=== PATIENT | male | born 1945 | race Native Hawaiian/Other Pacific Islander ===

== ENCOUNTER 2018-10-24 08:44 | Outpatient (CLI) | payer OTHER ==
[~2018-10-24 08:44] MED LIST: ASA LOW STR81 MG PO; METF500T PO; METO50TA63 PO; PLAVIX75 MG PO; WELCHOL625 MG OR; ZOCOR80 MG OR
[2018-10-24 09:24] LABS: PLATELET COUNT 295 K/uL (142-355)
== END 2018-10-24 19:37 | disposition home or self-care (01) ==
LOC: LABW 08:44
PROVIDERS: Internal Medicine Clinical Cardiac Electrophysiology
DX: I25.10 Atherosclerotic heart disease of native coronary artery without angina pectoris (principal); E11.9 Type 2 diabetes mellitus without complications; Z12.5 Encounter for screening for malignant neoplasm of prostate
CPT/HCPCS: 36415; 80053; 80061; 83036; 84153; 85027

== ENCOUNTER 2019-02-24 10:10 | Outpatient (CLI) | payer OTHER ==
[2019-02-24 10:33] LABS: PLATELET COUNT 235 K/uL (142-355)
[2019-02-24 18:27] LABS: POTASSIUM 3.9 mmol/L (3.6-5.2)
== END 2019-02-24 19:02 | disposition home or self-care (01) ==
LOC: LABW 10:10
PROVIDERS: Internal Medicine
DX: E11.9 Type 2 diabetes mellitus without complications (principal); Z12.5 Encounter for screening for malignant neoplasm of prostate; N40.0 Benign prostatic hyperplasia without lower urinary tract symptoms
CPT/HCPCS: 36415; 80053; 80061; 81000; 82043; 82570; 83036; 84153; 84439; 84443; 85027

== ENCOUNTER 2019-08-21 11:09 | Outpatient (CLI) | payer OTHER ==
[2019-08-21 12:09] LABS: PLATELET COUNT 228 K/uL (142-355)
[2019-08-21 12:26] LABS: POTASSIUM 4.1 mmol/L (3.6-5.2)
== END 2019-08-21 20:16 | disposition home or self-care (01) ==
LOC: LAB 11:09
PROVIDERS: Internal Medicine
DX: Z00.00 Encounter for general adult medical examination without abnormal findings (principal); E11.9 Type 2 diabetes mellitus without complications
CPT/HCPCS: 80053; 80061; 81000; 82043; 82570; 83036; 84443; 85027

== ENCOUNTER 2019-09-07 08:43 | Outpatient (CLI) | payer OTHER | END 2019-09-07 21:39 | disposition home or self-care (01) | LOC: CT 08:43 | DX: Z12.2 Encounter for screening for malignant neoplasm of respiratory organs (principal); Z13.6 Encounter for screening for cardiovascular disorders; Z87.891 Personal history of nicotine dependence ==

== ENCOUNTER 2020-06-22 09:18 | Outpatient (CLI) | payer OTHER ==
[2020-06-22 10:36] LABS: POTASSIUM 4.3 mmol/L (3.6-5.2)
[2020-06-22 11:13] LABS: PLATELET COUNT 229 K/uL (142-355)
== END 2020-06-22 22:22 | disposition home or self-care (01) ==
LOC: LABW 09:18
PROVIDERS: Internal Medicine
DX: I25.10 Atherosclerotic heart disease of native coronary artery without angina pectoris (principal); E11.9 Type 2 diabetes mellitus without complications; Z12.5 Encounter for screening for malignant neoplasm of prostate; N40.0 Benign prostatic hyperplasia without lower urinary tract symptoms
CPT/HCPCS: 36415; 80053; 80061; 81000; 83036; 84153; 84439; 84443; 85027

== ENCOUNTER 2020-08-24 15:54 | Observation (INO) | payer OTHER ==
[~2020-08-24] VITALS: Ht 172.7 cm; Wt 77.1 kg
[2020-08-24 16:33] LABS: PLATELET COUNT 212 K/uL (142-355)
[2020-08-24 16:38] LABS: POTASSIUM 4.6 mmol/L (3.6-5.2); SODIUM 138 mmol/L (136-145)
[2020-08-24 18:00] VITALS: BP 139/73; TEMP 98.9; Ht 172.7 cm; Wt 77.1 kg
[2020-08-24 20:00] VITALS: BP 140/68; TEMP 100.9
[2020-08-25] VITALS: BP 94/56; TEMP 99.8
[2020-08-25 04:00] VITALS: BP 120/69; TEMP 98.6
[2020-08-25 05:30] LABS: PLATELET COUNT 138 K/uL (142-355)
[2020-08-25 05:47] LABS: POTASSIUM 4.1 mmol/L (3.6-5.2)
[2020-08-25 08:00] VITALS: BP 111/67; TEMP 98.1
== END 2020-08-25 10:00 | disposition home or self-care (01) ==
LOC: MED/SURG 15:54
PROVIDERS: ADMIT Internal Medicine Endocrinology, Diabetes & Metabolism; ATTEND Internal Medicine Endocrinology, Diabetes & Metabolism
DX: U07.1 COVID-19 (principal); I25.10 Atherosclerotic heart disease of native coronary artery without angina pectoris; E11.9 Type 2 diabetes mellitus without complications; I10 Essential (primary) hypertension; E78.49 Other hyperlipidemia; K21.9 Gastro-esophageal reflux disease without esophagitis; M15.8 Other polyosteoarthritis
CPT/HCPCS: 36415; 80048; 80053; 82948; 84484; 85027; 87502; 87635; 96367; 96374; 99220; G0378; G0379; J0456; U0003

== ENCOUNTER 2020-12-09 09:44 | Outpatient (CLI) | payer OTHER ==
[2020-12-09 10:04] LABS: PLATELET COUNT 193 K/uL (142-355)
[2020-12-09 11:04] LABS: POTASSIUM 4.4 mmol/L (3.6-5.2)
== END 2020-12-09 19:30 | disposition home or self-care (01) ==
LOC: LABW 09:44
PROVIDERS: ATTEND Internal Medicine
DX: E11.9 Type 2 diabetes mellitus without complications (principal); I25.10 Atherosclerotic heart disease of native coronary artery without angina pectoris
CPT/HCPCS: 36415; 80053; 80061; 81000; 82043; 83036; 84439; 84443; 85027

== ENCOUNTER 2021-07-03 10:09 | Outpatient (CLI) | payer OTHER ==
[2021-07-03 11:09] LABS: PLATELET COUNT 229 K/uL (142-355)
[2021-07-03 11:29] LABS: POTASSIUM 4.4 mmol/L (3.6-5.2)
== END 2021-07-03 19:05 | disposition home or self-care (01) ==
LOC: LABW 10:09
PROVIDERS: ATTEND Internal Medicine
DX: I25.10 Atherosclerotic heart disease of native coronary artery without angina pectoris (principal); E11.43 Type 2 diabetes mellitus with diabetic autonomic (poly)neuropathy; I10 Essential (primary) hypertension
CPT/HCPCS: 36415; 80053; 80061; 81000; 82043; 83036; 84439; 84443; 85027

== ENCOUNTER 2022-01-08 08:31 | Outpatient (CLI) | payer OTHER ==
[2022-01-08 09:28] LABS: PLATELET COUNT 242 K/uL (142-355)
[2022-01-08 10:20] LABS: POTASSIUM 4.5 mmol/L (3.6-5.2)
== END 2022-01-08 18:54 | disposition home or self-care (01) ==
LOC: LABW 08:31
PROVIDERS: ATTEND Internal Medicine
DX: E11.43 Type 2 diabetes mellitus with diabetic autonomic (poly)neuropathy (principal); I25.10 Atherosclerotic heart disease of native coronary artery without angina pectoris; Z12.5 Encounter for screening for malignant neoplasm of prostate; N40.0 Benign prostatic hyperplasia without lower urinary tract symptoms
CPT/HCPCS: 36415; 80053; 80061; 82043; 83036; 84153; 84439; 84443; 85027

== ENCOUNTER 2022-07-18 13:15 | Outpatient (CLI) | payer OTHER ==
[2022-07-18 13:55] LABS: PLATELET COUNT 265 K/uL (142-355)
[2022-07-18 14:26] LABS: POTASSIUM 4.2 mmol/L (3.6-5.2)
== END 2022-07-18 19:14 | disposition home or self-care (01) ==
LOC: LAB 13:15
PROVIDERS: ATTEND Internal Medicine
DX: Z00.00 Encounter for general adult medical examination without abnormal findings (principal); E11.9 Type 2 diabetes mellitus without complications; I25.10 Atherosclerotic heart disease of native coronary artery without angina pectoris; E78.49 Other hyperlipidemia; R39.198 Other difficulties with micturition; Z79.899 Other long term (current) drug therapy; N40.0 Benign prostatic hyperplasia without lower urinary tract symptoms; I10 Essential (primary) hypertension
CPT/HCPCS: 80053; 80061; 81000; 82043; 83036; 84153; 84439; 84443; 85027

== ENCOUNTER 2023-04-15 09:48 | Outpatient (CLI) | payer OTHER ==
[2023-04-15 10:11] LABS: PLATELET COUNT 230 K/uL (142-355)
[2023-04-15 14:17] LABS: POTASSIUM 4.1 mmol/L (3.6-5.2)
== END 2023-04-15 19:08 | disposition home or self-care (01) ==
LOC: LABW 09:48
PROVIDERS: ATTEND Internal Medicine
DX: E11.9 Type 2 diabetes mellitus without complications (principal); R39.198 Other difficulties with micturition; N40.0 Benign prostatic hyperplasia without lower urinary tract symptoms
CPT/HCPCS: 36415; 80053; 80061; 81000; 83036; 84153; 84439; 84443; 85027